=== PATIENT | female | born 1990 | race Caucasian/White ===

== ENCOUNTER 2016-08-12 17:48 | Emergency (ER) | payer OTHER ==
[~2016-08-12 17:48] MED LIST: COLACE 100MG C100 MG PO; IBUPROFEN600 MG PO; NORCO 5-325 TA1 EACH PO
[2016-08-12 20:31] LABS: HEMOGLOBIN 14.6 gm/dl (12.3-15.3); RED BLOOD COUNT 5.09 M/UL (4.00-5.10); WHITE BLOOD COUNT 13.8 K/UL (4.5-11.0)
[2016-08-12 20:48] LABS: BUN/CREATININE RATIO 20 (0-10)
== END 2016-08-13 02:29 | disposition home or self-care (01) ==
LOC: ER1 17:48
PROVIDERS: Family Medicine
DX: N12 Tubulo-interstitial nephritis, not specified as acute or chronic (principal)
CPT/HCPCS: 36415; 80053; 81001; 82150; 83690; 84703; 85025; 96361; 96365; 96375; 99284; J0696; J2270; J2405; J7050

== ENCOUNTER 2016-08-21 10:10 | Emergency (ER) | payer OTHER ==
[2016-08-21 11:34] LABS: HEMOGLOBIN 15.1 gm/dl (12.3-15.3); RED BLOOD COUNT 5.29 M/UL (4.00-5.10); WHITE BLOOD COUNT 12.8 K/UL (4.5-11.0)
[2016-08-21 11:54] LABS: BUN/CREATININE RATIO 15 (0-10)
== END 2016-08-21 17:22 | disposition home or self-care (01) ==
LOC: ER1 10:10
PROVIDERS: Emergency Medicine
DX: R10.9 Unspecified abdominal pain (principal); I10 Essential (primary) hypertension; M79.7 Fibromyalgia
CPT/HCPCS: 36415; 80053; 81001; 83690; 84703; 85025; 96361; 96374; 96375; 99284; J2270; J2405; J7050; Q9962

== ENCOUNTER 2020-05-16 18:14 | Emergency (ER) | payer BC, OTHER ==
[2020-05-16 21:16] LABS: HEMOGLOBIN 12.9 gm/dl (12.3-15.3); RED BLOOD COUNT 4.49 M/UL (4.00-5.10); WHITE BLOOD COUNT 9.5 K/UL (4.5-11.0)
[2020-05-16 21:40] LABS: BUN/CREATININE RATIO 14 (0-10)
== END 2020-05-17 02:52 | disposition home or self-care (01) ==
LOC: ER1 18:14
PROVIDERS: Nurse Practitioner
DX: R07.89 Other chest pain (principal); R00.2 Palpitations; J98.4 Other disorders of lung; F17.290 Nicotine dependence, other tobacco product, uncomplicated; Z87.09 Personal history of other diseases of the respiratory system; Z87.39 Personal history of other diseases of the musculoskeletal system and connective tissue
CPT/HCPCS: 36415; 71045; 80053; 82550; 82553; 83735; 83874; 83880; 84439; 84443; 84484; 85025; 85379; 85610; 85730; 93005; 99285; J1885